=== PATIENT | male | born 2005 | race Caucasian/White ===

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

== ENCOUNTER 2023-10-10 22:03 | Emergency (ER) | payer BC ==
[~2023-10-10] VITALS: Ht 180.3 cm; Wt 63.0 kg
[2023-10-10 22:27] VITALS: BP 140/89; PULSE 83; RESP 16; TEMP 97.8; O2SAT 100
== END 2023-10-11 01:32 | disposition home or self-care (01) ==
LOC: ER 22:03
DX: M79.18 Myalgia, other site (principal); M54.6 Pain in thoracic spine; Z79.2 Long term (current) use of antibiotics; Z79.899 Other long term (current) drug therapy; V89.2XXA Person injured in unspecified motor-vehicle accident, traffic, initial encounter; Y93.89 Activity, other specified; Y92.89 Other specified places as the place of occurrence of the external cause; Y99.8 Other external cause status
CPT/HCPCS: 99282